=== PATIENT | female | born 2000 | race Caucasian/White ===

== ENCOUNTER 2021-11-24 20:02 | Emergency (ER) | payer OTHER ==
[2021-11-24 21:12] LABS: HEMOGLOBIN 15.9 gm/dl (12.3-15.3); RED BLOOD COUNT 5.22 M/UL (4.00-5.10); WHITE BLOOD COUNT 7.2 K/UL (4.5-11.0)
[2021-11-24 21:43] LABS: BUN/CREATININE RATIO 11 (0-10)
== END 2021-11-24 22:35 | disposition home or self-care (01) ==
LOC: ER1 20:02
PROVIDERS: Physician Assistant
DX: R07.89 Other chest pain (principal)
CPT/HCPCS: 71045; 80053; 82550; 82553; 83874; 84484; 85025; 85379; 93005; 99285